=== PATIENT | male | born 1965 | race African-American/Black ===

== ENCOUNTER 2019-08-29 18:44 | Emergency (ER) | payer OTHER ==
[~2019-08-29] VITALS: Ht 170.2 cm; Wt 106.6 kg
[~2019-08-29 18:44] MED LIST: BACTRIM DS TAB1 EACH PO; KEFLEX500 MG PO; PERMETHRIN60 GM TOP; SYNTHROID300 MCG
[2019-08-29] MEDS ORDERED: HYPERTHYROID MED (18:55)
[2019-08-29] MEDS ORDERED: DOXYCYCLINE 10100 M2 PO (19:17)
[2019-08-29] MEDS ORDERED: TYLENOL WITH CO1 TA1 PO (19:17)
[2019-08-29 19:28] VITALS: BP 138/89
== END 2019-08-29 19:28 | disposition home or self-care (01) ==
LOC: M.ERS 18:44
DX: S80.212A Abrasion, left knee, initial encounter (principal); L03.116 Cellulitis of left lower limb; X58.XXXA Exposure to other specified factors, initial encounter; Y93.89 Activity, other specified; Y92.89 Other specified places as the place of occurrence of the external cause; Y99.8 Other external cause status

== ENCOUNTER 2019-12-15 13:14 | Emergency (ER) | payer OTHER ==
[~2019-12-15] VITALS: Ht 167.6 cm; Wt 101.6 kg
[~2019-12-15 13:14] MED LIST changes: +DOXYCYCLINE 10100 M2 PO; +HYPERTHYROID MED; +TYLENOL WITH CO1 TA1 PO
[2019-12-15] MEDS ORDERED: TEMOVATE30 GM TOP (13:32)
[2019-12-15] MEDS ORDERED: MUPIROCIN15 GM TOP (13:32)
[2019-12-15] MEDS ORDERED: FLEXERIL PO (13:34)
[2019-12-15 13:46] VITALS: BP 106/70
== END 2019-12-15 13:47 | disposition home or self-care (01) ==
LOC: M.ERS 13:14
DX: L30.1 Dyshidrosis [pompholyx] (principal); M54.5 Low back pain; L53.9 Erythematous condition, unspecified

== ENCOUNTER 2019-12-28 09:07 | Emergency (ER) | payer OTHER ==
[~2019-12-28] VITALS: Ht 167.6 cm; Wt 102.1 kg
[~2019-12-28 09:07] MED LIST changes: +FLEXERIL PO; +MUPIROCIN15 GM TOP; +TEMOVATE30 GM TOP
[2019-12-28] MEDS ORDERED: BACTRIM DS TAB1 EACH PO (09:26)
[2019-12-28] MEDS ORDERED: NORCO 5-325 TA1 EAC2 PO (09:26)
[2019-12-28 09:35] VITALS: BP 117/84
== END 2019-12-28 09:36 | disposition home or self-care (01) ==
LOC: M.ERS 09:07
DX: L03.317 Cellulitis of buttock (principal)

== ENCOUNTER 2021-02-01 16:03 | Emergency (ER) | payer OTHER ==
[~2021-02-01] VITALS: Ht 167.6 cm; Wt 95.3 kg
[~2021-02-01 16:03] MED LIST changes: +NORCO 5-325 TA1 EAC2 PO
[2021-02-01] MEDS ORDERED: CEPHALEXIN500 MG PO (17:46)
[2021-02-01] MEDS ORDERED: BACTRIM DS TAB1 EACH PO (17:46)
[2021-02-01 17:55] VITALS: BP 122/58
== END 2021-02-01 17:56 | disposition home or self-care (01) ==
LOC: M.ERS 16:03
DX: L02.415 Cutaneous abscess of right lower limb (principal)

== ENCOUNTER 2021-04-22 19:35 | Emergency (ER) | payer OTHER ==
[~2021-04-22] VITALS: Ht 167.6 cm; Wt 95.3 kg
[~2021-04-22 19:35] MED LIST changes: +CEPHALEXIN500 MG PO
[2021-04-22] MEDS ORDERED: LIPITOR10 MG PO (19:53)
[2021-04-22] MEDS ORDERED: SYNTHROID137 MC1 PO (19:55)
[2021-04-22 20:25] LABS: ABSOLUTE EOSINOPHILS 0.4 thou/uL (0.0-0.7); ABSOLUTE NEUTROPHILS 2.5 thou/uL (1.6-8.1); BASOPHILS 0.5 %; HEMOGLOBIN 12.5 gm/dL (14.0-18.0); MCHC 33.2 g/dL (28.0-37.0); WBC 5.1 thou/uL (4.0-11.0)
[2021-04-22 20:27] LABS: ABSOLUTE LYMPHOCYTES 1.8 thou/uL (0.8-5.3); ABSOLUTE MONOCYTES 0.4 thou/uL (0.0-1.2); EOSINOPHILS 7.8 %; HEMATOCRIT 37.7 % (42.0-52.0); LYMPHOCYTES 35.1 %; MCH 31.4 pg (26.0-34.0); MCV 94.4 fL (80.0-100.0); MONOCYTES 6.9 %; MPV 7.1 fl. (7.2-11.1); NUCLEATED RBCS 0 /100WBC; PLATELET COUNT* 282 thou/uL (150-400); POLYS 49.7 %; RDW-CV 13.2 % (10.5-14.5)
[2021-04-22 20:30] LABS: CALCIUM 8.5 mg/dL (8.5-10.1); CREATININE 1.3 mg/dL (0.6-1.3); POTASSIUM 3.6 mmol/L (3.5-5.1)
[2021-04-22 20:34] LABS: ALBUMIN 3.4 g/dL (3.4-5.0); TOTAL BILIRUBIN 0.4 mg/dL (<0.1-1.0); TOTAL PROTEIN 6.7 g/dL (6.4-8.2)
[2021-04-22 20:58] LABS: URINE BILIRUBIN NEGATIVE (Negative); URINE BLOOD TRACE (Negative); URINE CLARITY CLEAR; URINE COLOR YELLOW; URINE GLUCOSE-RANDOM NEGATIVE (Negative); URINE KETONES NEGATIVE (Negative); URINE LEUKOCYTES-REFLEX NEGATIVE (Negative); URINE NITRITE-REFLEX NEGATIVE (Negative); URINE PROTEIN NEGATIVE (Negative); URINE UROBILINOGEN 0.2 E.U./dl (0.2-1.0)
[2021-04-22] MEDS ORDERED: NORCO5 PO ×2 (21:35→21:55)
[2021-04-22] MEDS ORDERED: OMEPRAZOLE 20 M20 M1 PO ×2 (21:35→21:55)
[2021-04-22] MEDS ORDERED: CARAFATE 1 GM TA1 G1 PO (21:35)
[2021-04-22 22:03] VITALS: BP 127/86
--- NOTE | 2021-04-23 09:51 | EKG ---
[place] [address] ELECTROCARDIOGRAM REPORT Name: CAROLINE MACARIO Room: [facility]#: [id number] Admission: 04/22/21 Attend Phys: Discharge: 04/22/21 Date of : 67 Date of Service: 04/22/211943 Report #: [id number] THIS REPORT FOR: //name// [facility] ED Test Date: 2021-04-22 Test Time: 19:44:15 Pat Name: CAROLINE MACARIO Department: Room: Gender: Human Services Case Manager: LULA : 1965 Requested By: Messi Jones Order Number: [id number] MD: Pastor Becker Measurements Intervals [place] Rate: 48 P: 25 NC: 217 QRS: 32 QRSD: 99 T: 21 QT: 450 QTc: 402 Interpretive Statements Sinus bradycardia Borderline prolonged NC interval Borderline ST elevation, anterior leads Compared to ECG 10/06/2015 10:46:08 ST (T wave) deviation now present T-wave abnormality no longer present Possible ischemia no longer present Electronically Signed On 04-23-2021 9:51:08 ELECTROTYPER APPRENTICE by Pastor Becker [email or web address] <ELECTRONICALLY SIGNED> By: Pastor Becker MD, FACC 04/23/2151 43 43 Pastor Becker MD, FAC /EPI
== END 2021-04-22 22:04 | disposition home or self-care (01) ==
LOC: M.ERS 19:35
PROVIDERS: Emergency Medicine; Physician Assistant
DX: R10.13 Epigastric pain (principal); Z79.899 Other long term (current) drug therapy